=== PATIENT | female | born 1960 ===

== ENCOUNTER 2017-08-07 22:28 | Emergency (ER) | payer OTHER, BC ==
[2017-08-07 22:37] VITALS: O2SAT 96
[2017-08-08 00:21] LABS: BASO % 0.5 % (0.0-2.0); EOS # 0.2 K/uL (0.0-0.7); EOS % 2.5 % (0.0-4.0); HEMOGLOBIN 12.6 g/dL (12.0-16.0); MEAN CELL VOLUME 79.9 fl (81.0-99.0); MEAN CORPUSCULAR HEMOGLOBIN 26.8 pg (27.0-31.0); MEAN CORPUSCULAR HGB CONC 33.5 g/dL (33.0-37.0); MEAN PLATELET VOLUME 8.9 fl (7.2-11.7); MONO # 0.4 K/uL (0.0-0.8); MONO % 5.8 % (0.0-10.0); NEUT % 60.2 % (50.0-75.0); NRBC % 0.1 % (0.0-0.0); RBC 4.71 Mil/uL (3.80-5.20); RED CELL DISTRIBUTION WIDTH 13.9 % (11.5-14.5); WHITE BLOOD COUNT 6.6 K/uL (4.8-10.8)
[2017-08-08 00:22] LABS: ALB/GLOB RATIO 1.1 (1.0-2.1); ALBUMIN 3.8 g/dL (3.5-5.0); ALT/SGPT 31 U/L (9-52); AST/SGOT 24 U/L (14-36); BLOOD UREA NITROGEN 14 mg/dl (7-17); GFR AFRICAN-AMERICAN > 60; GFR NON-AFRICAN AMERICAN > 60; LIPASE 70 U/L (23-300)
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
[2017-08-08] MEDS: Sodium Chloride 0.9% 1,000 ML IV STA (00:41)
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
[2017-08-08 01:29] LABS: PARTIAL THROMBOPLASTIN TIME 34.2 Seconds (25.6-37.1); PROTHROMBIN TIME 10.6 Seconds (9.8-13.1)
[2017-08-08 02:14] VITALS: BP 130/71; PULSE 94; RESP 18; TEMP 98
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
== END 2017-08-08 02:00 | disposition home or self-care (01) ==
LOC: H.ER 22:28
DX: M54.9 Dorsalgia, unspecified (principal); K59.00 Constipation, unspecified; V43.63XA Car passenger injured in collision with pick-up truck in traffic accident, initial encounter; E11.9 Type 2 diabetes mellitus without complications; E78.00 Pure hypercholesterolemia, unspecified; I10 Essential (primary) hypertension; Z79.84 Long term (current) use of oral hypoglycemic drugs
CPT/HCPCS: 71045; 72100; 72125; 74176; 80053; 82948; 83690; 85025; 85610; 85730; 86850; 86900; 99282; J7030

== ENCOUNTER 2018-01-27 16:25 | Emergency (ER) | payer BC, OTHER ==
[2018-01-27 17:36] LABS: BASO # 0.1 K/uL (0.0-0.2); BASO % 0.9 % (0.0-2.0); EOS # 0.2 K/uL (0.0-0.7); EOS % 1.5 % (0.0-4.0); HEMOGLOBIN 13.4 g/dL (12.0-16.0); LYMPH # 3.1 K/uL (1.0-4.3); LYMPH % 31.9 % (20.0-40.0); MEAN CORPUSCULAR HEMOGLOBIN 27.3 pg (27.0-31.0); MEAN CORPUSCULAR HGB CONC 33.8 g/dL (33.0-37.0); MEAN PLATELET VOLUME 8.8 fl (7.2-11.7); MONO # 0.5 K/uL (0.0-0.8); MONO % 5.4 % (0.0-10.0); NEUT # 5.9 K/uL (1.8-7.0); NEUT % 60.3 % (50.0-75.0); NRBC % 0.1 % (0.0-0.0); RBC 4.91 Mil/uL (3.80-5.20); RED CELL DISTRIBUTION WIDTH 13.6 % (11.5-14.5); WHITE BLOOD COUNT 9.8 K/uL (4.8-10.8)
--- NOTE | 2018-01-27 17:36 | ED PDOC ---
HPI: Chest Pain Time Seen by Provider: 01/27/18 16:57 Chief Complaint (Nursing): Palpitations Chief Complaint (Provider): Chest pain and palpitations History Per: Patient History/Exam Limitations: no limitations Onset/Duration Of Symptoms: Hrs (x5) Current Symptoms Are (Timing): Still Present Additional Complaint(s): 57 year old female, with a past medical history of diabetes and high cholesterol, presents to the ED reporting chest pain and palpitations, intermittent since about 13:00 today associated with buzzing and pain in the left ear. Patient reports feeling nausea and light headedness. She reports compliance with medications and was recently on medications, including albuterol, prednisone, and flonase, to treat bronchitis. She states she has been feeling better since starting medications about a week ago. PMD: Luke Harrison Against Medical Advice - AMA Patient Left Against Medical Advice: The patient declines admission to the hospital and wishes to leave the Emergency Department. This action is against my medical advice. This decision was made with informed refusal. The patient was told that admission to the hospital is necessary. Explanation of the reasons why were discussed. The risks of leaving were explained to the patient and include, but are not limited to, worsening of known or currently unknown conditions, permanent disability and from undiagnosed or untreated conditions. The patient has the capacity to make this informed decision and understands my explanation of the current medical problem and risks of leaving. The patient voluntarily accepts these risks and signed an AMA form documenting our conversation. The patient was given the opportunity to ask questions and reconsider. The patient was encouraged to return to the Emergency Department at any time for further care. Past Medical History Reviewed: Historical Data, Nursing Documentation, Vital Signs Vital Signs: Last Vital Signs Temp Pulse 100 H 01/27/18 16:31 Resp 18 01/27/18 16:31 BP 158/58 H 01/27/18 16:31 Pulse Ox 100 01/27/18 16:31 - Medical History PMH: Diabetes, Diverticulitis, HTN, Hypercholesterolemia - Surgical History Surgical History: Cholecystectomy, (x2) - Family History Family History: States: Hypertension - Social History Current smoker - smoking cessation education provided: No - Home Medications Home Medications: Ambulatory Orders Medication Instructions Recorded Albuterol 0.083% [Albuterol 0.083% 3 ml IH Q6 PRN 01/27/18 Inhal Sofia (2.5 mg/3 ml) UD] Cholecalciferol [Vitamin D 1000 IU] 1,000 unit PO BID 01/27/18 Insulin Aspart, Recombinant 10 unit SC ACTID 01/27/18 [Novolog] MetFORMIN [glucoPHAGE] 1,000 mg PO BID 01/27/18 Methylprednisolone [Medrol Dose 4 mg PO ASDIR 01/27/18 Pack (21 tabs)] Mometasone Furoate [Nasonex] 2 spray AGNIESZKA DAILY PRN 01/27/18 Montelukast [Singulair] 10 mg PO HS 01/27/18 Naproxen [Naprosyn] 500 mg PO Q12 PRN 01/27/18 [place]-3 Fatty Acids [[place]-3] 1 cap PO Q12 01/27/18 Ramipril [Altace] 2.5 mg PO DAILY 01/27/18 Rosuvastatin Calcium [Crestor] 20 mg PO HS 01/27/18 guaiFENesin/Dextromethorphan 10 ml PO Q6 PRN 01/27/18 [Robitussin DM] - Allergies Allergies/Adverse Reactions: Allergies Allergy/AdvReac Type Severity Reaction Status Date / Time No Known Allergies Allergy Verified 12/22/13 22:23 Review of Systems ROS Statement: Except As Marked, All Systems Reviewed And Found Negative (as per HPI) ENT: Positive for: Other (Left ear buzzing and pain) Cardiovascular: Positive for: Chest Pain, Palpitations Gastrointestinal: Positive for: Nausea Neurological: Positive for: Other (light headedness) Physical Exam - Reviewed Nursing Documentation Reviewed: Yes Vital Signs Reviewed: Yes - Physical Exam Appears: Positive for: Non-toxic, No Acute Distress Head Exam: Positive for: ATRAUMATIC, NORMOCEPHALIC Skin: Positive for: Warm, Dry Eye Exam: Positive for: EOMI, PERRL ENT: Negative for: Pharyngeal Erythema, Tonsillar Exudate Neck: Positive for: Painless ROM, Supple Cardiovascular/Chest: Positive for: Regular Rate, Rhythm, Chest Non Tender. Negative for: Murmur Respiratory: Positive for: Normal Breath Sounds. Negative for: Wheezing, Respiratory Distress Gastrointestinal/Abdominal: Positive for: Soft. Negative for: Tenderness Back: Positive for: Normal Inspection. Negative for: Decreased ROM Extremity: Positive for: Normal ROM. Negative for: Pedal Edema, Calf Tenderness, Deformity Lymphatic: Negative for: Adenopathy Neurologic/Psych: Positive for: Alert, Mood/Affect (anxious affect). Negative for: Motor/Sensory Deficits - Laboratory Results Result Diagrams: 01/27/18 17:25 01/27/18 17:25 - ECG ECG Rhythm: Positive for: Normal QRS, Normal ST Segment, Sinus Rhythm (normal) Rate: 94 O2 Sat by Pulse Oximetry: 100 (RA) Pulse Ox Interpretation: Normal Medical Decision Making Medical Decision Making: Initial Impression: Chest pain and palpitations with cardiac risk factors Initial Plan: --Type and screen stat --ECG --B-type natriuretic peptide stat --CMP --Magnesium --Phosphorous stat --TSH stat --Troponin stat --CBC --D Dimer --Partial thromboplastin time --Prothrombin time --Chest X-ray Patient may need hospitalization to r/o mace. Pending ER workup. 8am Labs demonstrate elevated ddimer. However pt now reports allergy to iodine. Advised hospitalization for VQ scan in AM as well as for full cardiac workup for chest pain. Pt declines hospitalization but amenable to repeat troponin to r/o MACE HEART Pathway for Early Discharge in Acute Chest Pain from [facility] on 01/27/2018 RESULT SUMMARY: 3 points HEART Pathway Score Low risk 0.91.7% 30-day MACE Repeat troponin at 3 hours and if negative, discharge home with outpatient follow-up. INPUTS: History > 1 = Moderately suspicious EKG > 0 = Normal Age > 1 = 45-64 Risk factors > 1 = 1-2 risk factors Initial troponin > 0 = normal limit Repeat troponin negative Scribe Attestation: Documented by Gary Grider acting as a scribe for Felicita Schneider MD. Provider Scribe Attestation: All medical record entries made by the Scribe were at my direction and personally dictated by me. I have reviewed the chart and agree that the record accurately reflects my personal performance of the history, physical exam, medical decision making, and the department course for this patient. I have also personally directed, reviewed, and agree with the discharge instructions and disposition. Disposition - Clinical Impression Clinical Impression: Palpitations, Chest pain - Disposition Referrals: Luke Vines MD [Family Provider] - 01/28/18 Disposition: Against Medical Advice Disposition Time: 22:00 Condition: UNKNOWN Additional Instructions: YOU HAVE NOT HAD A HEART ATTACK. BUT WE WERE UNABLE TO PERFORM TESTS TO RULE OUT BLOOD CLOT IN YOUR LUNG (PULMONARY EMBOLISM) PLEASE RETURN TO ER IMMEDIATELY FOR HOSPITALIZATION TO COMPLETE YOUR WORKUP OTHERWISE FOLLOWUP SOON POSSIBLE WITH YOUR PRIMARY CARE PHYSICIAN. Instructions: Leaving Against Medical Advice
[2018-01-27 17:53] LABS: PROTHROMBIN TIME 11.4 Seconds (9.8-13.1)
[2018-01-27 18:03] LABS: B-TYPE NATRIURETIC PEPTIDE 16.5 pg/ml (0-900)
[2018-01-27 18:15] LABS: ALB/GLOB RATIO 1.1 (1.0-2.1); ALT/SGPT 35 U/L (9-52); AST/SGOT 20 U/L (14-36); BLOOD UREA NITROGEN 20 mg/dl (7-17); CALCIUM 9.4 mg/dL (8.4-10.2); GFR NON-AFRICAN AMERICAN > 60
--- NOTE | 2018-01-27 18:31 | RAD ---
HISTORY: chest pain COMPARISON: Chest x-ray performed 08/08/17 TECHNIQUE: Chest PA and lateral FINDINGS: Examination limited by habitus. LUNGS: No focal consolidation. Please note that chest x-ray has limited sensitivity for the detection of pulmonary masses. PLEURA: No significant pleural effusion identified. No definite pneumothorax . CARDIOVASCULAR: Heart size appears within normal limits. Atherosclerotic calcification present. OSSEOUS STRUCTURES: Degenerative changes. VISUALIZED UPPER ABDOMEN: Unremarkable. OTHER FINDINGS: None. IMPRESSION: No focal consolidation.
[2018-01-27] MEDS ORDERED: Iodixanol 320 MG/ML 100 ML BOTTLE IV ONE (18:57)
[2018-01-27] MEDS ORDERED: Sodium Chloride 0.9% 50 ML IV ONE (18:57)
[2018-01-27 21:56] VITALS: BP 111/60; RESP 18; TEMP 98.7
[2018-01-27 22:09] VITALS: PULSE 94; O2SAT 100
--- NOTE | 2018-01-28 14:27 | CARD ---
APPROVED REPORT Date of service: 01/27/2018 EKG Measurement Heart [id number] NM [id number] <Conclusion> Normal sinus rhythm Normal ECG
== END 2018-01-27 23:00 | disposition home or self-care (01) ==
LOC: H.ER 16:25
DX: R00.2 Palpitations (principal); R07.89 Other chest pain; E11.9 Type 2 diabetes mellitus without complications; E78.00 Pure hypercholesterolemia, unspecified; I10 Essential (primary) hypertension
CPT/HCPCS: 71046; 80053; 82948; 83735; 83880; 84100; 84443; 84484; 85025; 85378; 85610; 85730; 86850; 86900; 93005; 99284; Q9967